=== PATIENT | male | born 1980 | race Caucasian/White ===

== ENCOUNTER 2021-11-20 12:08 | Emergency (ER) | payer BC ==
[2021-11-20] MEDS ORDERED: FLORASTOR250 MG PO (15:22)
[2021-11-20] MEDS ORDERED: ZOFRAN ODT 4 MG4 MG SL (15:22)
== END 2021-11-20 15:40 | disposition home or self-care (01) ==
LOC: ER1 12:08
DX: J06.9 Acute upper respiratory infection, unspecified (principal); Z20.822 Contact with and (suspected) exposure to COVID-19; R19.7 Diarrhea, unspecified; F17.200 Nicotine dependence, unspecified, uncomplicated; R11.2 Nausea with vomiting, unspecified
CPT/HCPCS: 99284; U0002

== ENCOUNTER 2021-11-27 00:43 | Emergency (ER) | payer SELFPAY ==
[~2021-11-27 00:43] MED LIST: FLORASTOR250 MG PO; ZOFRAN ODT 4 MG4 MG SL
[2021-11-27] MEDS ORDERED: KEFLEX CAP 250250 MG PO (03:13)
[2021-11-27] MEDS ORDERED: PERCOCET 5/325 T1 EA PO ×2 (03:13→03:32)
== END 2021-11-27 03:47 | disposition home or self-care (01) ==
LOC: ER1 00:43
DX: S62.632A Displaced fracture of distal phalanx of right middle finger, initial encounter for closed fracture (principal); S91.214A Laceration without foreign body of right lesser toe(s) with damage to nail, initial encounter; F17.200 Nicotine dependence, unspecified, uncomplicated; Z88.8 Allergy status to other drugs, medicaments and biological substances; X58.XXXA Exposure to other specified factors, initial encounter
CPT/HCPCS: 11760; 73140; 90471; 90715; 96374; 96375; 99283; J0690; J2270; J2405